=== PATIENT | female | born 1940 | race Caucasian/White ===

== ENCOUNTER → 2016-06-26 | Outpatient (CLI) | payer MEDICARE ==
[~2016-06-26] MED LIST: ARICEPT5 MG PO; LEVOTHYROXINE0.05 MG PO; LIPITOR80 MG PO; PROZAC10 MG PO; PROZAC40 MG PO; VITAMIN D1000 IU PO
--- NOTE | ~2016-06-26 | HM ---
[place], [place] HOLTER MONITOR REPORT [id number] UNIT #: [id number] ROOM: DOCTOR: SIERRA BAIN MD BIRTHDATE: [birth year] DOS: 06/27/2016 24 HOUR HOLTER MONITOR Referred by Dr. Khoury for evaluation of irregular heartbeats. Study was done from 06/26/2016 to 06/27/2016. The recording was processed and is being interpreted on 06/27/2016. FINDINGS: Basic rhythm is normal sinus with an average heart rate of 81. Heart rate varied from 67-113 beats per minute in sinus rhythm. The patient had rare premature ventricular contractions. No complex or ventricular tachycardia was seen. The patient did have supraventricular irregularities. She had episodes of wandering atrial pacemaker and short runs of multifocal atrial tachycardia. No atrial fibrillation was seen. She did not have any prolonged pauses. She lists symptoms of dyspnea on two occasions without associated arrhythmias. IMPRESSION: 1. Normal sinus rhythm with frequent PACs and wandering atrial pacemaker. 2. No significant ventricular arrhythmias seen. SIERRA BAIN MD CM:HOLTER:HOLTER MONITOR REPORT [id number] SIERRA BAIN MD
== END | disposition home or self-care (01) ==
LOC: CARD 01:44
DX: I49.9 Cardiac arrhythmia, unspecified (principal)

== ENCOUNTER → 2016-09-25 | Outpatient (CLI) | payer MEDICARE | END | disposition home or self-care (01) | LOC: CARD 02:07 | DX: I08.3 Combined rheumatic disorders of mitral, aortic and tricuspid valves (principal); I47.1 Supraventricular tachycardia; R06.02 Shortness of breath; R06.09 Other forms of dyspnea ==

== ENCOUNTER 2017-02-06 12:04 | Inpatient (IN) | payer MEDICARE ==
[~2017-02-06] VITALS: Ht 160 cm; Wt 52.8 kg
--- NOTE | ~2017-02-06 | PROC NOTE ---
[place], [place] PROCEDURE NOTE NAME: ISABEL RAMIREZ [facility] #: [id number] UNIT #: [id number] ROOM: 421 DOCTOR: NAUN MARRERO MD,ALTAF BIRTHDATE: [birth year] DOS: 02/09/2017 PROCEDURE: The patient with transbronchial biopsy and BAL specimen of the right upper lobe. PREOPERATIVE DIAGNOSIS: Nonspecific interstitial pneumonitis, ground glass opacities. POSTOPERATIVE DIAGNOSES: Nonspecific interstitial pneumonitis, ground glass opacities. COMPLICATIONS: None. BLOOD LOSS: None. PROCEDURE DESCRIPTION: Informed consent obtained from the patient. She was brought to the OR and placed in supine position. Conscious sedation administered by Anesthesia Department. After achieving proper sedation, airway introduced into the mouth. Bronchoscope advanced to the airway into laryngeal area. Epiglottis vocal cords were seen. Vocal moved symmetrical movement. Bronchoscope advanced to the vocal cord and tracheal lumen was noted without any acute abnormality. Right upper, right middle, right lower, left upper, lingular lower lobe bronchi were all noted patent. BAL specimens obtained from the patient right upper lobe subsegment at the site of the ground glass opacities infiltration. Transbronchial biopsy also taken the same subsegment. Procedure well tolerated by the patient without complication. Chest x-ray post-procedure does not show any pneumothorax. The specimen was sent for the cell count. The differential assessment for the pneumocystis stain, cytology and all the necessary cultures. ALTAF MAGALLON MD CM:PROCNOTE:PROCEDURE NOTE [id number] ALTAF MARRERO MD
--- NOTE | ~2017-02-06 | PR ---
[place], [place] PROGRESS NOTE [id number] UNIT #: [id number] ROOM: 421 DOCTOR: NAUN MARRERO MD,ALTAF BIRTHDATE: [birth year] DOS: 02/08/2017 SUBJECTIVE: She has been noted comfortable at this time, but still noted symptoms of shortness of breath. There was no cough reported. There were no symptoms of chest pain or any abdominal pain. OBJECTIVE: VITAL SIGNS: The temperature 99.2 degrees Fahrenheit, noted normal temperature; respiratory rate of 18-20, heart rate 100-94, blood pressure 108/50-96/45. The pulse oxygen saturation recorded on room air 97% saturation. HEENT: No acute change. NECK: Supple. CARDIOVASCULAR: S1, S2 audible. LUNGS: Noted without any wheeze or crackles. ABDOMEN: Soft, flat, nontender. EXTREMITIES: Without any edema, clubbing or cyanosis. LABORATORY DATA: CBC this morning: WBC count 13.3, hemoglobin 11.1, hematocrit 34.6, platelet count of 403,000, mildly elevated. The BMP this morning, BUN 14, creatinine was normal, glucose 128. Albumin 2.4 in the CMP. The blood culture from the 02/06/2017 shows no bacterial growth. The CRP that was ordered yesterday was noted elevated at 14.50. IMPRESSION: Interstitial infiltration. The patient with ground glass opacity noted in the lungs bilaterally. Various differentials remain in consideration. Shortness of breath related to the current ongoing interstitial lung disease and nonspecific interstitial pneumonitis which appeared to be an acute illness. Possible consideration of allergic drug reaction, infections and other remains in consideration including assessment of connective tissue disorders. PLAN OF MANAGEMENT: Monitor results of the current serology, which has been sent on this patient. Continuation of the bronchodilators with oxygen supplementation only if necessary. The patient has been ordered the bronchoscopy, which will be done with the transbronchial biopsy and BAL specimen tomorrow morning for further assessment of current interstitial lung disease and ground glass opacities. The risk and benefits have been discussed with the patient. She was agreeable for the procedure and the procedure was scheduled to be done in the morning, n.p.o. past midnight status will be made from today. [place], [place] PROGRESS NOTE NAME: ISABEL RAMIREZ UNIT #: [id number] ROOM: 421 DOCTOR: ALTAF STEPHENS MD BIRTHDATE: [birth year] ALTAF MAGALLON MD CM:PNTRANS [id number] ALTAF MARRERO MD 02/08/17 1306 interface
--- NOTE | ~2017-02-06 | PR ---
[place], [place] PROGRESS NOTE NAME: ISABEL RAMIREZ [facility] #: [id number] UNIT #: [id number] ROOM: 421 DOCTOR: NAUN MARRERO MD,ALTAF BIRTHDATE: [birth year] DOS: 02/10/2017 SUBJECTIVE: She has been noted comfortable at this time, resting on the bed. The bronchoscopy done yesterday with BAL specimens obtained as well as transbronchial biopsy, right upper lung without any complications. She reported reduction in symptoms of shortness of breath. OBJECTIVE: VITAL SIGNS: Temperature yesterday afternoon noted 100.6 degree Fahrenheit, otherwise normal temperature, respiratory rate 20, heart rate 90, blood pressure 95/62. Pulse oxygen saturation noted on room air 94% saturation. HEENT: Examination shows no acute change. NECK: Supple. CARDIOVASCULAR SYSTEM: S1, S2 is audible. LUNGS: The patient was noted without any wheezing or crackles at the present time. ABDOMEN: Soft, nontender. IMPRESSION: The patient with interstitial lung disease for the patient at this time, etiology unclear, status post bronchoscopy. Shortness of breath has been noted stable. PLAN OF MANAGEMENT: Continuation of the patient's current plan of management. The patient at this time without any changes. Assess the available results of the bronchial washing, BAL specimen, cultures and the pathology report. Prior to making any additional changes that will be done as an outpatient or recommendation of management. The patient could be discharged home from the pulmonary standpoint to be followed up in the office in the next couple of weeks. ALTAF MAGALLON MD CM:PNTRANS [phone] ALTAF MARRERO MD 02/10/17 1341 interface
--- NOTE | ~2017-02-06 | CON ---
[place], [place] REPORT OF CONSULTATION NAME: ISABEL RAMIREZ [facility] #: [id number] UNIT #: [id number] ROOM: 421 DOCTOR: NAUN MARRERO MD,ALTAF BIRTHDATE: [birth year] DOS: 02/07/2017 PULMONARY CONSULTATION, EVALUATION AND MANAGEMENT CONSULTATION REQUESTED BY: Hospitalist services. REASON FOR CONSULTATION: To assess the patient's symptoms of shortness of breath and others. HISTORY OF PRESENT ILLNESS: This is a 76-year-old white female who has been reported having symptoms of progressive shortness of breath occurring for the past 2 months. The symptoms have been noted with gradual worsening and not resolving. The patient stated that she has recently been noted with history of recurrent fall and has concussion 3 times that might be causing her symptoms of shortness of breath. She denies any symptoms of coughing, chest pain or wheezing. Denies any symptoms of trauma to the chest. The patient has been currently admitted to the hospital for the medical management, stating his shortness of breath remains essentially the same. REVIEW OF SYSTEMS: CONSTITUTIONAL SYMPTOMS: She denies any symptoms of fever or chills at the present time. Denies any symptoms of abnormal weight loss recently. EYES: Denies any burning, redness, or tenderness. EARS, NOSE, THROAT SYMPTOMS: No sore throat, hoarseness, otalgia, postnasal drainage. CARDIOVASCULAR: Denies anginal pain, edema or pain of the lower extremities or palpitations. GASTROINTESTINAL: Dysphagia, nausea, vomiting, diarrhea, abdominal pain, hematemesis, melena, or hematochezia. SKIN: Denies lesions or rashes. MUSCULOSKELETAL: Acute joint pain, redness, or tenderness. CENTRAL NERVOUS SYSTEM: No dizziness, headache, diplopia or syncopal episode, but has been reported with history of recurrent fall with inability to keep the balance. Remaining systems were reviewed with the patient, they were noted all negative. PAST MEDICAL HISTORY: Has been reported with 1. History of dementia. 2. Coronary artery disease. 3. Hypercholesterolemia. 4. Hypothyroidism. PAST SURGICAL HISTORY: 1. T and A. 2. Exploratory laparotomy. 3. Coronary artery bypass grafting. SOCIAL HISTORY: She was noted nonsmoker lifetime. Retired as a teacher. Denies any history of alcohol use or any illicit drug use. She is and [place], [place] REPORT OF CONSULTATION NAME: SIABEL RAMIREZ [facility] #: [id number] UNIT #: [id number] ROOM: 421 DOCTOR: NAUN MARRERO MDALTAF BIRTHDATE: [birth year] has 1 child. FAMILY HISTORY: The patient's father at age of 80 years with complication of myocardial infarction. Mother at age of 77 years with complication related to myocardial infarction as well. HOME MEDICATIONS: Listed the use of aspirin, calcium carbonate, vitamin D, Prozac, gabapentin, Vistaril, indapamide, levothyroxine and naproxen. DRUG ALLERGIES: She reported: 1. Allergy to the iodine. 2. Shellfish derivatives. PHYSICAL EXAMINATION: GENERAL: A 76-year-old people current noted awake and alert without any acute distress. Height of 5 feet 2 inches, weight 160 pound BMI 20.6 reported on current admission. VITAL SIGNS: Temperature essentially normal, respiratory rate was recorded as 18-20, heart rate 88-87, blood pressure 120/65-97/61. Pulse oxygen saturation on room air was 99-100% saturation noted. HEENT: Examination shows head was atraumatic. Eyes nonicterus. NECK: Supple. CARDIOVASCULAR: S1, S2 is audible without any added sounds. LUNGS: Noted clear to auscultation bilaterally without any wheezing or crackles. ABDOMEN: Flat, soft, nontender. Bowel sounds present. EXTREMITIES: Without any edema, clubbing, cyanosis. CENTRAL NERVOUS SYSTEM: Cranial nerves 2-12 intact. No focal deficit. MUSCULOSKELETAL: No deformities. SKIN: No lesions or rashes. LABORATORY DATA: CBC on 02/06/2017, WBC count 13.3, hemoglobin 11.6, hematocrit 36.1, and platelet count was normal yesterday. The lactic acid yesterday noted normal remission. Ammonia level less than 1 yesterday. PT/PTT yesterday on admission normal. The CMP yesterday, BUN and creatinine were normal. Glucose was normal. ProBNP was mildly elevated at 2000 and more. TSH for the patient was noted as normal yesterday as well. ESR 85 yesterday recorded. CBC of 02/07/2017, WBC count 13.3, hemoglobin 11.9, hematocrit of 36.6, platelet count 403,000. CMP of the patient of 02/07/2017. The patient was noted with a normal BUN and creatinine. Albumin mildly decreased 2.6, otherwise normal. RADIOLOGY DATA: Review for this patient. The V/Q scan for the patient was essentially noted completely normal that was done yesterday. The patient had a CT scan of the chest that was completed, another chest x-ray of the patient that was done for this patient on 02/06/2017. The patient 1 view was noted without any acute abnormality, some age-related changes of the musculoskeletal system was noted. CT scan of the chest that was done for this patient on 02/07/2017 was personally reviewed, it shows multiple large area of chronic aggressive obesity. The patient was noted in the lungs bilaterally. The interstitial patches patient's lung capacities were noted for this patient much greater [place], [place] REPORT OF CONSULTATION NAME: ISABEL RAMIREZ UNIT #: [id number] ROOM: [facility] DOCTOR: LEXIE STEPHENS MDM BIRTHDATE: [birth year] involvement in the right lung than the left lung. Some of the infiltration for this patient of ground glass following the bronchovascular bundle. There were no pleural effusions. Mediastinal structure assessment was noted limited because of the lack of the IV contrast. However, there was no cross lymphadenopathy visible on the current mediastinal structure assessment. The CT scan of the chest that was done many years ago. On 06/07/2002 for the patient was noted at that time finding consistent with congestive heart failure, bilateral pleural fluid and patchy infiltration these findings, the patient, which are noted in the current CT scan appears to be all new interval developed. IMPRESSION: The patient with the symptoms of shortness of breath, which has been noted with recurrent findings with the patient. A CT scan consistent with nonspecific interstitial pneumonitis. The differential diagnosis would be considered such as a viral infections, allergic drug reaction for this patient. Possibility of acute interstitial pneumonitis for this patient. Less likely, the finding would be considered for this patient for the acute hypersensitivity pneumonitis; however, acute eosinophilic pneumonia would be considered in the differential diagnosis. PLAN OF MANAGEMENT: Further workup. Workup for the interstitial lung disease has been ordered for this patient at this time. The patient will be planned for bronchoscopy. The patient with specimen obtained for the patient one of the subsegment patient for more accurate differentiation of the patient for the group of interstitial lung disease disorders. At this time, I would not be using any new medication such as steroids and others until the most definitive diagnosis will be achieved. All other supportive plan of management and care to be continued as in progress. Usual care. Additional treatment changes will be made based on the available new data. Thanks for allowing me to participate in the care of this patient. ALTAF MAGALLON MD CM:CONSTR:REPORT OF CONSULTATION 1259 02/07/17 1514 interface
--- NOTE | ~2017-02-06 | EKG ---
[place], [place] ELECTROCARDIOGRAM REPORT NAME: ISABEL RAMIREZ UNIT #: [id number] ROOM: 421 DOCTOR: NAUN MARRERO MD,ALTFA BIRTHDATE: [birth year] DOS: 02/06/2017 ELECTROCARDIOGRAM TIME: 12:55 p.m. Accelerated junctional rhythm was noted with heart rate of 85 beats per minute. The voltage criteria for LVH was also considered. No other elective cardiac abnormalities were noted. ALTAF MAGALLON MD CM:EKGRPT:ELECTROCARDIOGRAM REPORT [id number] 1318 ALTAF MARRERO MD
--- NOTE | ~2017-02-06 | PR ---
[place], [place] PROGRESS NOTE NAME: ISABEL RAMIREZ [facility] #: [id number] UNIT #: [id number] ROOM: 421 DOCTOR: NAUN MARRERO MD,ALTAF BIRTHDATE: [birth year] DOS: 02/09/2017 SUBJECTIVE: She has been n.p.o. past midnight, bronchoscopy today. Still noted symptoms of shortness of breath, was noted nonproductive cough. Denies symptoms of chest pain, abdominal pain, or hemoptysis. Denies any edema of the lower extremities. OBJECTIVE: VITAL SIGNS: Temperature recorded shows normal temperature, respiratory rate of 20, heart rate of 93, and blood pressure of 103/71. The pulse oxygen saturation noted on room air 96% saturation. HEENT: Showed no acute change. NECK: Supple. CARDIOVASCULAR: S1, S2 audible. LUNGS: No wheeze or crackles. ABDOMEN: Soft, nontender. EXTREMITIES: Without any edema. LABORATORY DATA: BMP for the patient that were done today shows BUN 14, creatinine 1.03, albumin 2.5. CBC this morning, WBC count 12.5, hemoglobin 11.3, hematocrit 34.6, and platelet count 429,000. IMPRESSION: 1. The patient with ground-glass opacity infiltration, the patient noted in the lungs bilaterally with nonspecific interstitial pneumonitis with various differentials in progress, being worked up at this time. The patient is also noted n.p.o. for bronchoscopy today with transbronchial biopsy and BAL specimen of the right upper lobe. PLAN OF MANAGEMENT: Proceed with the current plan of assessment with the bronchoscopy. The patient was noted n.p.o. Continue other supportive therapy, plan of management care plan. Usual treatment, other therapies. ALTAF MAGALLON MD CM:PNTIFFANY [phone] ALTAF MARRERO MD 02/09/17 1536 interface
[2017-02-06 12:19] VITALS: BP 124/79
[2017-02-06 12:55] LABS: BASO # 0.1 10*3/uL (0.0-0.1); BASO % 0.5 % (0.0-1.0); EOS # 0.1 10*3/uL (0.0-0.4); EOS % 1.1 % (1.0-4.0); HEMATOCRIT 36.1 % (37.0-47.0); HEMOGLOBIN 11.6 g/dl (12.0-16.0); LYMPH # 1.3 10*3/uL (1.3-4.4); LYMPH % 9.8 % (27.0-41.0); MEAN CORPUSCULAR HGB 30.2 pg (27.0-31.0); MEAN CORPUSCULAR HGB CONC 32.1 g/dl (33.0-37.0); MEAN PLATELET VOLUME 10.5 fl (9.6-12.3); MONO # 1.5 10*3/uL (0.1-1.0); NEUT # 10.3 10*3/uL (2.3-7.9); PLATELET COUNT AUTOMATED 379 10*3/uL (130-400); RED BLOOD COUNT 3.84 10*6/uL (4.10-5.10); RED CELL DISTRI WIDTH 13.1 % (0-14.5); WHITE BLOOD COUNT 13.3 10*3/uL (4.8-10.8)
[2017-02-06 13:06] LABS: ACT PARTIAL THROMBO TIME 26.3 SECONDS (20.8-31.5); INTERNATIONAL NORM RATIO 1.1 (2.0-3.5)
[2017-02-06 13:12] LABS: ALBUMIN 2.7 gm/dl (3.1-4.5); ALKALINE PHOSPHATASE 102 U/L (45-117); BUN 15 mg/dl (7-24); CHLORIDE 105 mmol/L (98-107); CREATININE 0.96 mg/dL (0.55-1.02); LIPASE 92 U/L (73-393); POTASSIUM 4.4 mmol/L (3.5-5.1); SGOT/AST 27 IU/L (3-35); SGPT/ALT 23 U/L (12-78); SODIUM 140 mmol/L (136-145); TOTAL PROTEIN 7.3 gm/dL (6.4-8.2)
[2017-02-06 13:14] LABS: TROPONIN I < 0.015 ng/ml (<0.045)
[2017-02-06 13:20] LABS: FREE T4 1.25 ng/dl (0.76-1.46); THYROID STIM HORMONE (HS) 2.45 uIU/ml (0.358-4.75)
--- NOTE | 2017-02-06 13:58 | NUR ---
REPORT CALLED TO MAKAYLA PERERA. [facility] WILL TRANSPORT PATIENT TO FLOOR WHEN SHE RETURNS FROM NUCLEAR MEDICINE.
[2017-02-06] MEDS ORDERED: VISTARIL25 MG PO (14:22)
[2017-02-06] MEDS ORDERED: TOFRANIL PO (14:22)
[2017-02-06] MEDS ORDERED: NEURONTIN300 MG PO (14:23)
[2017-02-06] MEDS ORDERED: NAPROXEN D/R500 MG PO (14:23)
[2017-02-06 14:51] LABS: BILIRUBIN NEGATIVE (NEGATIVE); BLOOD TRACE-LYSED (NEGATIVE); CLARITY CLEAR (CLEAR); COLOR YELLOW (YELLOW); GLUCOSE NEGATIVE (NEGATIVE); KETONE TRACE (NEGATIVE); LEUKO ESTERASE NEGATIVE (NEGATIVE); NITRITE NEGATIVE (NEGATIVE); SPECIFIC GRAVITY 1.015 (1.005-1.030)
[2017-02-06 15:03] LABS: BACTERIA 3+; RBC 0-2 rbc/hpf (0-2)
--- NOTE | 2017-02-06 15:15 | NUR ---
Time: 1514 A 76 year old FEMALE admitted to under services of CALI VYAS DO. Pt. arrived via bed from ER. Chief complaint: MAKAYLA ENRIQUE A
[2017-02-06] MEDS ORDERED: BAYER ASPIRIN C81 MG PO (15:44)
[2017-02-06] MEDS ORDERED: Oscal,Oyster S500 MG PO (15:45)
[2017-02-06 16:00] VITALS: BP 133/72
--- NOTE | 2017-02-06 16:25 | NUR ---
PHYSICIAN WAS NOTIFIED OF DR. NAUN TAYLOR. RESPONSE OF NOTIFICATION WAS OK THANK YOU. MAKAYLA MONTENEGRO
[2017-02-06 20:00] VITALS: BP 116/72
--- NOTE | 2017-02-06 21:57 | NUR ---
VISTARIL GIVEN PER ORDER FOR ANXIETY PER PT. REQUEST. SEE MAR.
[2017-02-07] VITALS: BP 120/65
[2017-02-07 06:15] LABS: BASO # 0.1 10*3/uL (0.0-0.1); BASO % 0.4 % (0.0-1.0); EOS # 0.2 10*3/uL (0.0-0.4); EOS % 1.3 % (1.0-4.0); HEMATOCRIT 36.6 % (37.0-47.0); HEMOGLOBIN 11.9 g/dl (12.0-16.0); LYMPH # 1.4 10*3/uL (1.3-4.4); LYMPH % 10.7 % (27.0-41.0); MEAN CELL VOLUME 94.3 fl (81.0-99.0); MEAN CORPUSCULAR HGB 30.7 pg (27.0-31.0); MEAN CORPUSCULAR HGB CONC 32.5 g/dl (33.0-37.0); MEAN PLATELET VOLUME 10.4 fl (9.6-12.3); MONO # 1.4 10*3/uL (0.1-1.0); MONO % 10.1 % (3.0-9.0); NEUT # 10.3 10*3/uL (2.3-7.9); NEUT % 76.9 % (47.0-73.0); PLATELET COUNT AUTOMATED 403 10*3/uL (130-400); RED BLOOD COUNT 3.88 10*6/uL (4.10-5.10); RED CELL DISTRI WIDTH 13.2 % (0-14.5); WHITE BLOOD COUNT 13.3 10*3/uL (4.8-10.8)
[2017-02-07 06:30] LABS: ALBUMIN 2.6 gm/dl (3.1-4.5); BUN 12 mg/dl (7-24); CHLORIDE 104 mmol/L (98-107); CHOLESTEROL 233 mg/dL (<200); CREATININE 0.93 mg/dL (0.55-1.02); PHOSPHOROUS 2.8 mg/dL (2.5-4.9); POTASSIUM 4.2 mmol/L (3.5-5.1); SGOT/AST 17 IU/L (3-35); SGPT/ALT 19 U/L (12-78); SODIUM 140 mmol/L (136-145)
[2017-02-07 06:38] LABS: ALKALINE PHOSPHATASE 94 U/L (45-117); FREE T4 1.28 ng/dl (0.76-1.46); HDL CHOLESTEROL 59 mg/dl (40-60); LDL CHOLESTEROL 146 mg/dL (9-159); TOTAL PROTEIN 7.2 gm/dL (6.4-8.2); TRIGLYCERIDES 138 mg/dl (<150); VLDL CHOLESTEROL 28 mg/dL (6-40)
[2017-02-07 08:00] VITALS: BP 109/65
[2017-02-07 08:41] LABS: VITAMIN D, 25-HYDROXY 37.5 ng/mL (30-100)
--- NOTE | 2017-02-07 09:16 | NUR ---
DR GIL NOTIFIED OF CONSULT
--- NOTE | 2017-02-07 09:17 | NUR ---
PT OFF FLOOR FOR CT CHEST
--- NOTE | 2017-02-07 09:44 | NUR ---
case management attempted to visit with patient, patient was out of the room for testing, will see later today
--- NOTE | 2017-02-07 10:00 | NUR ---
PT RETURNS TO FLOOR
--- NOTE | 2017-02-07 10:52 | NUR ---
PHYSICAL THERAPY PAtient with doctors at this time. Thank you for this referral. Indu Lee,PT
--- NOTE | 2017-02-07 10:57 | NUR ---
Patient not available for Occupational Therapy evaluation as she was in with the doctor. OTR will recheck at a later time. May Pena OTR/raymond
[2017-02-07 12:00] VITALS: BP 97/61
--- NOTE | 2017-02-07 12:10 | NUR ---
PHYSICAL THERAPY PAtient evaluated on 4, full evaluation to follow. Continue with PT as per plan of care with fall, recent severe fatigue with minimal exertion and nausia with mobility. May require in-patient reahb versus SNF for impaired mobility upon d/c in order to return to home at (I) PLOF. PAtient is high complexity via chart review, tests and evaluation: [id number]. Thank you for this referral. Indu Lee,PT
--- NOTE | 2017-02-07 12:12 | NUR ---
Legal Specialist in to talk to patient. Patient states lives at home with . There are few steps in the home. Physician: marisabel iyer [facility]: [facility] [place] [facility]: none Patient's level of ADLs: MINIMAL ASSIST Patient has working utilities: all working DME: none Follow-up physician's appointment after d/c: will be made by hospitalist nurse director upon discharge Does patient want to access PORTAL?: no Discharge plan discussed with patient and , patient states she lives at home with , has had numerous falls in the past and is supposed to use a cane or walker but chose not to. discussed with them a short term nursing home for rehab prior to going back home and both refused, stated that she would be going back home, also discussed VNA and stated they would think about this, case management will follow. JACQUELYN GARCIA
--- NOTE | 2017-02-07 12:33 | NUR ---
Occupational Therapy evaluation completed this date on 4 with full eval to follow. PRecautions include fall risk, impaired memory, generalized weakness, decreased performance in ADLs, xfers, balance, moderate complexity level 68699. Recommend OT per POC and SNF upon d/c. Thank you for this referral. May Pena OTR/l
--- NOTE | 2017-02-07 14:20 | NUR ---
PT RESTING IN BED WITH FAMILY AT BEDSIDE.
[2017-02-07 16:00] VITALS: BP 100/60
--- NOTE | 2017-02-07 19:19 | NUR ---
PT. C/O NAUSEA ZOFRAN GIVEN PER ORDER. SEE MAR.
[2017-02-07 20:00] VITALS: BP 117/45
[2017-02-08] VITALS: BP 96/45
[2017-02-08 06:12] LABS: IMMUNOGLOBULIN IgE 002170 4 IU/mL (0-100)
[2017-02-08 07:00] LABS: HEMATOCRIT 34.6 % (37.0-47.0); HEMOGLOBIN 11.1 g/dl (12.0-16.0); MEAN CELL VOLUME 94.8 fl (81.0-99.0); MEAN CORPUSCULAR HGB 30.4 pg (27.0-31.0); MEAN CORPUSCULAR HGB CONC 32.1 g/dl (33.0-37.0); MEAN PLATELET VOLUME 10.4 fl (9.6-12.3); PLATELET COUNT AUTOMATED 403 10*3/uL (130-400); RED BLOOD COUNT 3.65 10*6/uL (4.10-5.10); WHITE BLOOD COUNT 13.3 10*3/uL (4.8-10.8)
[2017-02-08 07:10] LABS: ALBUMIN 2.4 gm/dl (3.1-4.5); BUN 14 mg/dl (7-24); CHLORIDE 104 mmol/L (98-107); POTASSIUM 4.3 mmol/L (3.5-5.1); SODIUM 139 mmol/L (136-145)
[2017-02-08 07:17] LABS: ALKALINE PHOSPHATASE 87 U/L (45-117); CREATININE 1.03 mg/dL (0.55-1.02); SGOT/AST 17 IU/L (3-35); SGPT/ALT 17 U/L (12-78); TOTAL PROTEIN 6.9 gm/dL (6.4-8.2)
[2017-02-08 07:40] LABS: PLATELET SUFFICIENCY NORMAL (NORMAL); TOTAL CELLS COUNTED 100 #CELLS
[2017-02-08 08:00] VITALS: BP 108/50
[2017-02-08 08:13] LABS: RHEUMATOID ARTHRITIS FACTOR 18.3 IU/mL (0.0-13.9)
--- NOTE | 2017-02-08 09:00 | NUR ---
case management visits with patient, discussed with her pt recommendation of a SNF, patient refused, stated she was going back home, also discussed VNA and she also refused this, case management will follow
[2017-02-08 12:00] VITALS: BP 105/58
--- NOTE | 2017-02-08 12:21 | NUR ---
PHYSICAL THERAPY Patient seen this am 1:1 for therapy and was supine in bed upon therapist arrival. Patient voices no new c/o's other than generalized weakness and transfers sup to sit EOB Min A x 1. Patient performed seated B LE therex, all planes, x 15 each to increase LE strength. Patient then transfered sit to stand Min A, demonstrating bouts of B UE tremors prior to ambulating EVALUATION SPECIALIST/Min, 30'x 1, slow madiha with unsteady gait pattern. Patient returned to supine in bed and remained upon 's arrival. Patient had call light, telephone and tray table within reach and will continue per POC as tolerated to improve standing activity tolerance and safe functional mobility. Total treatment time 24 minutes. Josse Rosenthal, BACK UP MACHINE OPERATOR
--- NOTE | 2017-02-08 14:28 | NUR ---
PHYSICAL THERAPY Patient was resting comfortably, supine in bed upon therapist arrival for pm second visit attempt and not seen for therapy. Will continue per POC as tolerated. Josse Rosenthal, BACCARAT MANAGER
--- NOTE | 2017-02-08 15:20 | NUR ---
Pre-op questionaire and consent for bronchoscopy completed.
[2017-02-08 16:00] VITALS: BP 105/50
[2017-02-08 16:10] LABS: ALDOLASE 002030 7.2 U/L (3.3-10.3); ANGIOTENSIN-CONVERTING ENZYME 51 U/L (14-82)
--- NOTE | 2017-02-08 17:17 | NUR ---
PT. INSTRUCTED ON I/S AND THE PURPOSE OF EXERCISE. PT. ACHIEVED A VOLUME OF 500 TO 750, WITH Q2 USE AND TO TAKE HOME UPON DISCHARGE.
[2017-02-08 18:09] LABS: ATYPICAL PANCA <1:20 titer (Neg:<1:20); CYTOPLASMIC (C-ANCA) <1:20 titer (Neg:<1:20); PERINUCLEAR (P-ANCA) <1:20 titer (Neg:<1:20)
--- NOTE | 2017-02-08 19:44 | NUR ---
PATIENT C/O HEADACHE, STATES "THE BREATHING TREATMENTS SOMETIMES GIVE ME A HEADACHE" RATES PAIN 10/10 AT THIS TIME. MEDICATED WITH PRN PO TYLENOL, WILL MONITOR FOR EFFECTIVENESS. PATIENT SITTING UP IN BED WITH VISITING AT THIS TIME. BED SIDERAILS UP X2 FOR SAFETY AND CALL LIGHT WITHIN REACH.
[2017-02-08 20:00] VITALS: BP 107/57
--- NOTE | 2017-02-08 20:40 | NUR ---
TYLENOL EFFECTIVE FOR PAIN PER PT. RATED PAIN "0"
[2017-02-09] VITALS (11 sets, daily range): BP systolic 100–128; BP diastolic 39–79
[2017-02-09 01:07] LABS: IGG SUBCLASS 1 360 mg/dL (248-810); IGG SUBCLASS 2 137 mg/dL (130-555); IGG SUBCLASS 3 34 mg/dL (15-102); IGG SUBCLASS 4 2 mg/dL (2-96)
[2017-02-09 06:11] LABS: BASO # 0.1 10*3/uL (0.0-0.1); BASO % 0.6 % (0.0-1.0); EOS # 0.3 10*3/uL (0.0-0.4); EOS % 2.2 % (1.0-4.0); HEMATOCRIT 34.6 % (37.0-47.0); HEMOGLOBIN 11.3 g/dl (12.0-16.0); LYMPH # 1.3 10*3/uL (1.3-4.4); LYMPH % 10.5 % (27.0-41.0); MEAN CELL VOLUME 94.3 fl (81.0-99.0); MEAN CORPUSCULAR HGB 30.8 pg (27.0-31.0); MEAN CORPUSCULAR HGB CONC 32.7 g/dl (33.0-37.0); MEAN PLATELET VOLUME 10.5 fl (9.6-12.3); MONO # 1.5 10*3/uL (0.1-1.0); MONO % 11.8 % (3.0-9.0); NEUT # 9.3 10*3/uL (2.3-7.9); NEUT % 74.4 % (47.0-73.0); PLATELET COUNT AUTOMATED 429 10*3/uL (130-400); RED BLOOD COUNT 3.67 10*6/uL (4.10-5.10); RED CELL DISTRI WIDTH 13.1 % (0-14.5); WHITE BLOOD COUNT 12.5 10*3/uL (4.8-10.8)
[2017-02-09 06:26] LABS: ALBUMIN 2.5 gm/dl (3.1-4.5); ALKALINE PHOSPHATASE 108 U/L (45-117); BUN 14 mg/dl (7-24); CHLORIDE 104 mmol/L (98-107); CREATININE 1.03 mg/dL (0.55-1.02); POTASSIUM 4.5 mmol/L (3.5-5.1); SGOT/AST 25 IU/L (3-35); SGPT/ALT 21 U/L (12-78); SODIUM 141 mmol/L (136-145); TOTAL PROTEIN 7.2 gm/dL (6.4-8.2)
--- NOTE | 2017-02-09 07:34 | NUR ---
PATIENT TO OR BY BED FOR BRONCHOSCOPY.
--- NOTE | 2017-02-09 09:00 | NUR ---
case management attempted to visit with patient, patient out of room for testing
--- NOTE | 2017-02-09 09:39 | NUR ---
PHYSICAL THERAPY Patient was still in surgery having a bronchycopy. Check back later. ZOE PLUNKETT GRINDER WATCH PARTS
--- NOTE | 2017-02-09 09:50 | NUR ---
PATIENT OUT FOR BRONCHSCOPY THIS AM. LA NENA MASON/Bennie
--- NOTE | 2017-02-09 10:03 | NUR ---
PATIENT BACK FROM BRONCHOSCOPY PROCEDURE, SEE SHIFT ASSESSMENTS.
--- NOTE | 2017-02-09 10:54 | NUR ---
PHYSICAL THERAPY Back this AM to see Leandra, Pt supinr in bed. Pt is afraid of falling. Transfer supine/sit, sitting balance supervision X 1. Sit/stand and standing balance MIN A X 1, X 2 standing balance. Then gait total 45' X 1, with wheeled walker, slow madiha, verbal cueing for gait safety and she felt much better with the walker. Pt back supine in bed, call light and sister present. JEFFERY LONGO MOTORBOAT OPERATOR.
--- NOTE | 2017-02-09 11:28 | NUR ---
PATIENT SEEN 1:1 OT THIS DATE 25 MINUTES. PATIENT IDENTIFIED BY NAME AND DATE OF . PATIENT COMPLETED SUPINE TO SIT EOB CGA WITH VERBAL CUES INCREASE SIT BALANCE/ FOOT POSITION WITH F+ SIT BALANCE COMPLETING BUE AROM ALL PLANES X 10 REPS WITH MODERATE REST BREAKS REQUIRED SECONDARY FATIGUE. PATIENT REPORT FEELING WORN OUT FROM TESTING THIS DATE. PATIENT COMPLETED SIT TO STAND FROM BED CGA WITH STAND TOLERANCE APPROX 1 MIN WHILE COMBING HAIR USE FWW VERBALIZING NEED SEATED REST BREAK. PATIENT REQUESTED TO LIE DOWN CGA AND COMPLETED SECOND SET BUE AROM IN SUPINE ALL PLANES X 10 REPS WITH VERBAL CUES PACE SELF AND PURSE LIP BREATHING. PATIENT'S SISTER PRESENT THROUGHOUT TREATMENT THIS DATE. PATIENT CALL LIGHT WITHIN REACH AND NO FURTHER NEEDS VERBALIZED. LA NENA ALBRIGHT
[2017-02-09 12:00] LABS: BF LYMPHOCYTES 6 %
[2017-02-09 12:02] LABS: BF MACROPHAGES 90 %
--- NOTE | 2017-02-09 16:00 | NUR ---
PATIENT C/O HAVING URGE TO VOID, BUT UNABLE TO WHEN UP TO RR. SHE WAS INSTRUCTED IN URINE SAMPLE COLLECTION AND WAS ATTEMPTING TO PROVIDE SAMPLE. BLADDER SCANNED FOR 108ML. SHE ALSO C/O CONSTIPATION, NO BM FOR 4 DAYS, PHONED ANDRY CARDOZA FOR ORDER FOR LAXATIVE.
--- NOTE | 2017-02-09 16:42 | NUR ---
MEDICATED WITH PRN PO TYLENOL FOR TEMP. 100.6.
--- NOTE | 2017-02-09 20:15 | NUR ---
PATIENT RESTING IN BED WITH AND SON AT BEDSIDE. SHE HAS NO VOICED COMPLAINTS AT THIS TIME. PLEASANT/COOPERATIVE WITH CARE. RESPIRATIONS EASY/REG. SEE ASSESSMENT. CALL LIGHT IS IN REACH.
--- NOTE | 2017-02-09 22:26 | NUR ---
PATIENT MEDICATED WITH PRN VISTARIL ORDERED FOR C/O ANXIETY.
--- NOTE | 2017-02-09 23:30 | NUR ---
EARLIER VISTARIL APPEARS EFFECTIVE. PATIENT RESTING QUIETLY IN BED. NO SXS OF DISTRESS. CALL LIGHT IN REACH.
[2017-02-10] VITALS: BP 100/48
--- NOTE | 2017-02-10 01:45 | NUR ---
SLEEPING, NO SXS OF DISTRESS. RESPIRATIONS EASY/REG. CALL LIGHT IS IN REACH.
[2017-02-10 08:00] VITALS: BP 113/67; BP 139/70
--- NOTE | 2017-02-10 10:31 | NUR ---
PHYSICAL THERAPY Pt declines therapy today due to not having slept well last evening. She states she is feeling well except for having a sore throat from her breathing treatments. She reports having no nausea today and hopes to go home soon. She states that she has been getting up independently and walking to the door and hopes to walk down the hallway later today or tomorrow. Anamika Burgos PTA
[2017-02-10] MEDS ORDERED: DOXYCYCLINE100 M3 PO (11:55)
[2017-02-10 12:00] VITALS: BP 95/62
--- NOTE | 2017-02-10 12:26 | NUR ---
PNEUMO SHOT GIVEN PRIOR TO D/C
--- NOTE | 2017-02-10 12:47 | NUR ---
Discharge instructions reviewed with patient/family. Patient receptive and verbalizes understanding. Follow-up care arranged. Written instructions given to patient/family. SUKH ORTIZ
--- NOTE | 2017-02-10 15:22 | NUR ---
PHYSICAL THERAPY CO-SIGN I approve of the Phyical Therapy notes written above. ЮЛИЯ OLIVAREZ PT
[2017-02-10 16:11] LABS: ACID FAST SMEAR Negative (.); ACID FAST SPEC PROCESSING Concentration (.); ACID FAST SPEC PROCESSING Tissue Grinding (.)
--- NOTE | 2017-02-13 07:29 | NUR ---
when presented with a list of home health agencies patient and were undecided. Patient then discharged, contacged patient and at home to discuss which agency they were interested in, but patient put on the phone, he stated he wasn't sure if they wanted home health at this time becuase his was still sick and not doing well. wanted to wait and see what he was going to do with this patient.
--- NOTE | 2017-02-13 11:32 | NUR ---
Late note: patient called and asked for home health referral to be made to [facility]. Contacted [facility] and faxed referral.
--- NOTE | 2017-02-14 08:06 | NUR ---
OCCUPATIONAL THERAPY CO-SIGN I approve of the Occupational Therapy notes written above. HANNAH CÁRDENAS OTR/Bennie
== END 2017-02-10 12:47 | disposition home or self-care (01) | DRG 167 ==
LOC: ED 12:04 → 4E 13:32 → EDHOLD 13:32 → 4E 13:48
PROVIDERS: Emergency Medicine; Internal Medicine; Internal Medicine Critical Care Medicine; Registered Nurse; ADMIT Student in an Organized Health Care Education/Training Program
PROC: 0BBC8ZX Excision of Right Upper Lung Lobe, Via Natural or Artificial Opening Endoscopic, Diagnostic (ICD-10-PCS; principal; 2017-02-09)
PROC: 0B9C8ZX Drainage of Right Upper Lung Lobe, Via Natural or Artificial Opening Endoscopic, Diagnostic (ICD-10-PCS; principal; 2017-02-09)
DX: J84.89 Other specified interstitial pulmonary diseases (principal); E44.0 Moderate protein-calorie malnutrition; F03.90 Unspecified dementia, unspecified severity, without behavioral disturbance, psychotic disturbance, mood disturbance, and anxiety; I34.0 Nonrheumatic mitral (valve) insufficiency; I07.1 Rheumatic tricuspid insufficiency; D72.829 Elevated white blood cell count, unspecified; R53.81 Other malaise; E03.9 Hypothyroidism, unspecified; G43.909 Migraine, unspecified, not intractable, without status migrainosus; I25.10 Atherosclerotic heart disease of native coronary artery without angina pectoris; R53.83 Other fatigue; E78.00 Pure hypercholesterolemia, unspecified; Z68.21 Body mass index [BMI] 21.0-21.9, adult; Z82.49 Family history of ischemic heart disease and other diseases of the circulatory system; Z95.1 Presence of aortocoronary bypass graft; Z91.041 Radiographic dye allergy status; Z91.013 Allergy to seafood; Z79.82 Long term (current) use of aspirin; Z79.899 Other long term (current) drug therapy